=== PATIENT | female | born 1980 | race Asian ===

== ENCOUNTER 2023-05-02 22:05 | Emergency (ER) | payer OTHER ==
[~2023-05-02] VITALS: Ht 185.4 cm; Wt 90.7 kg
[2023-05-02 22:14] VITALS: BP_SYST 115; PULSE 93; RESP 17; TEMP 98.4; O2SAT 97
--- NOTE | 2023-05-02 22:19 | NUR ---
BUG BITE AND SWELLING TO LEFT LEG X1 WEEK, 2/10 PAIN, PATIENT STATES SHE HAS BEEN SCRATCHING THE AREA
--- NOTE | 2023-05-02 22:27 | NUR ---
MD ASSESSED PATIENT IN TRIAGE, MD NOTED NOTED ULTRASOUNDING PATIENT LEFT LEG
[2023-05-02] MEDS ORDERED: CEPH-548 PO (22:43)
[2023-05-02] MEDS ORDERED: IBUP-1969 PO (22:43)
[2023-05-02] MEDS ORDERED: cephALEXin 500 MG CAPSULE PO ONE (22:45)
[2023-05-02 23:12] VITALS: BP_SYST 129; PULSE 78; RESP 15; TEMP 97.6; O2SAT 99
--- NOTE | 2023-05-02 23:15 | NUR ---
Patient given written and verbal discharge instructions and verbalizes understanding. ER MD discussed with patient the results and treatment provided. Patient in stable condition. ID arm band removed. Rx of given. Patient educated on pain management and to follow up with PMD. Pain Scale 1/10. Opportunity for questions provided and answered. Medication side effect fact sheet provided.
== END 2023-05-02 23:12 | disposition home or self-care (01) ==
LOC: SED 22:05
DX: L03.116 Cellulitis of left lower limb (principal); M79.662 Pain in left lower leg; Z79.899 Other long term (current) drug therapy
CPT/HCPCS: 99283